=== PATIENT | female | born 1965 | race Hispanic/Latino ===

== ENCOUNTER → 2016-05-08 | Outpatient (CLI) | payer MEDICARE, MEDICAID ==
[~2016-05-08] MED LIST: /ESCI20TA PO; BUSP5TA PO; CELE10TA PO; CETI10TA PO; FLON0.05; LEVO75TA3 PO; PRAZ2CAP PO; REST0.05 OU; SERO400T PO; SERO400T3 PO; VIST50CA PO; [UNRECOGNIZED DRUG - CODE] PO
[2016-05-08 09:58] LABS: BASO # 0.1 K/mm3 (0.0-0.2); BASO % 0.7 % (0.0-1.0); EOS # 0.2 K/mm3 (0.0-0.50); EOS % 1.8 % (0.0-3.0); LARGE UNSTAINED CELL # 0.2 K/mm3 (0.0-0.4); LARGE UNSTAINED CELL % 1.6 % (0.0-4.0); LYMPH # 2.5 K/mm3 (1.5-4.5); LYMPH % 24.8 % (24.0-44.0); MEAN CORPUSCULAR HEMOGLOBIN 30.7 pg (27.0-33.0); MEAN CORPUSCULAR VOLUME 90.2 fl (80.0-96.0); MONO # 0.5 K/mm3 (0.0-0.8); MONO % 4.9 % (0.0-5.0); NEUTROPHILS # 6.4 K/mm3 (1.8-7.7); NEUTROPHILS % 66.2 % (36.0-66.0); PLATELET COUNT, AUTOMATED 335 k/mm3 (150-450); RED CELL DISTRIBUTION WIDTH 12.8 % (11.5-14.5); WHITE BLOOD COUNT 9.6 K/mm3 (4.0-10.0)
[2016-05-08 10:15] LABS: ALBUMIN 3.1 GM/DL (3.2-5.2); ALBUMIN/GLOBULIN RATIO 0.86 (1.00-1.93); ALKALINE PHOSPHATASE 89 U/L (45-117); ALT/SGPT 86 U/L (12-78); ANION GAP 7 MEQ/L (8-16); AST/SGOT 28 U/L (15-37); BILIRUBIN,TOTAL 0.5 MG/DL (0.2-1.0); BLOOD UREA NITROGEN 8 MG/DL (7-18); CALCIUM LEVEL 8.6 MG/DL (8.5-10.1); CARBON DIOXIDE LEVEL 30 MEQ/L (21-32); CHLORIDE LEVEL 103 MEQ/L (98-107); CHOLESTEROL LEVEL 179 MG/DL (<200); FREE T4 0.95 NG/DL (0.76-1.46); GLOMERULAR FILTRATION RATE > 60.0 (>58); GLUCOSE, FASTING 87 MG/DL (70-105); POTASSIUM SERUM 4.8 MEQ/L (3.5-5.1); SODIUM LEVEL 140 MEQ/L (136-145); TOTAL PROTEIN 6.7 GM/DL (6.4-8.2); TRIGLYCERIDES LEVEL 210 MG/DL (<150)
== END ==
LOC: M LAB 08:52
PROVIDERS: ATTEND Emergency Medicine
DX: E03.9 Hypothyroidism, unspecified (principal); E55.9 Vitamin D deficiency, unspecified; J30.9 Allergic rhinitis, unspecified; F32.9 Major depressive disorder, single episode, unspecified

== ENCOUNTER → 2016-07-14 | Outpatient (CLI) | payer MEDICARE, MEDICAID | LOC: M RAD 08:20 | PROVIDERS: ATTEND Obstetrics & Gynecology | DX: Z12.31 Encounter for screening mammogram for malignant neoplasm of breast (principal); Z53.9 Procedure and treatment not carried out, unspecified reason ==

== ENCOUNTER → 2016-08-03 | Outpatient (CLI) | payer MEDICARE, MEDICAID ==
--- NOTE | 2016-08-03 10:15 | REP ---
BILATERAL MAMMOGRAM: FAMILY HISTORY: Breast cancer in mother and two maternal aunts. Moderately dense fibroglandular tissue is noted. Comparison made with multiple prior exams, most recently 08/01/2015. 9 mm rounded nodular opacity is seen laterally on the right CC view. This is not seen on the MLO view. Parenchymal pattern otherwise appears unchanged bilaterally. There are no clustered microcalcifications identified. There are normal sized lymph nodes in the axillary regions. IMPRESSION: ACR 0 incomplete. There appears to be a 9 mm nodular density laterally on the right CC view. Recommend spot compression view of the right breast in CC projection as well as a routine right ML view. Other views and ultrasound may also be necessary. ACR 0 incomplete. BI-RADS/ACR category 0 mammogram. Incomplete: Additional imaging and/or prior images are needed before a final assessment can be assigned. This mammogram was interpreted with the aid of an FDA-approved computer-aided detection system. A. Negative x-ray reports should not delay biopsy if a dominant or clinically suspicious mass is present. B. Four to eight percent of cancers are not identified by x-ray. C. Adenosis and dense breasts may obscure an underlying neoplasm. The patient states she had a clinical breast exam in 08/2015. The patient letter being requested is M0. Signed by Viraj Wynn MD 08/03/2016 05:11 P
== END ==
LOC: M RAD 08:10
PROVIDERS: ATTEND Obstetrics & Gynecology
DX: Z12.31 Encounter for screening mammogram for malignant neoplasm of breast (principal); R92.8 Other abnormal and inconclusive findings on diagnostic imaging of breast; Z80.3 Family history of malignant neoplasm of breast

== ENCOUNTER → 2016-08-11 | Outpatient (CLI) | payer MEDICARE, MEDICAID ==
--- NOTE | 2016-08-11 15:18 | REP ---
DIAGNOSTIC MAMMOGRAM RIGHT BREAST WITH RIGHT BREAST ULTRASOUND: Diagnostic mammogram of the right breast performed with multiple spot compression views obtained in various projections. Correlation is made with a recent mammogram of 08/03/2016 and compared to other prior exams. On spot compression CC views, there persistence of a 9 mm nodular density. This could not be seen on any of the ML or MLO views. On the CC views, the nodular density is partially obscured by overlying dense fibroglandular tissue. Some of the margins appear fairly smooth and well defined. Real-time sonographic evaluation of the outer right breast demonstrates several tiny subcentimeter cystic areas, which appear benign. At 9 -o'clock, there is a hypoechoic nodule which measures 8 x 5 x 8 mm and appears somewhat suspicious. IMPRESSION: ACR IV suspicious. On spot compression CC views of the right breast, there is a suspected persistent 9 mm nodular density but this could not be confirmed on ML or MLO views. By ultrasound at 9 -o'clock, there does appear to be a hypoechoic nodule with a maximum diameter of 8 mm. This may represent a solid nodule. I would recommend ultrasound guided biopsy with postprocedure mammogram after clip placement. B-RADS/ACR category 4 mammogram. Suspicious abnormality - biopsy should be considered. Usually requires biopsy. Patient letter [id number]. Signed by Viraj Wynn MD 08/11/2016 05:06 P
== END ==
LOC: M RAD 11:16
PROVIDERS: ATTEND Obstetrics & Gynecology
DX: R92.8 Other abnormal and inconclusive findings on diagnostic imaging of breast (principal)
CPT/HCPCS: 76642; G0206

== ENCOUNTER → 2016-08-28 | Outpatient (CLI) | payer MEDICARE, MEDICAID ==
[~2016-08-28] MED LIST changes: +LIDOCAINE 1% MDV 20ML VIAL As Ordered ONE
--- NOTE | 2016-08-28 15:10 | REP ---
Digital diagnostic unilateral right breast mammography with CAD: History: Marker clip placement views. Post ultrasound-guided needle biopsy. Right breast nodule on CC views only from August 11, 2016 and solid appearing hypoechoic nodule at 9 o'clock in the right breast on ultrasound exam from August 11, 2016. Comparison is also made with prior mammography from August 01, 2015, August 23, 2014, August 07, 2014 and August 18, 2013. Findings: Post biopsy true MLO, laterally exaggerated CC, and routine CC views were obtained. Marker clip is seen slightly lateral to the position of the nodule on the August 11, 2016 prior study. This nodule is no longer apparent. It was observed to disappear during the suction assisted biopsy on ultrasound. There is a second nodular opacity projecting in the upper outer quadrant of the right breast which is felt to be unchanged from multiple prior mammography images. No hematoma is seen. Impression: The marker clip is felt to be 1-2 cm lateral to the position of the biopsy. The target nodule is no longer apparent. A stable preexisting nodule is seen in the same quadrant. Signed by Jose Post MD 08/28/2016 04:40 P
--- NOTE | 2016-08-28 17:29 | REP ---
ULTRASOUND GUIDED RIGHT BREAST BIOPSY: The procedure was performed by TIEN Cruz under the direct supervision of Dr. Post. The procedure along with its risks, benefits, and complications were discussed with the patient. Informed consent was obtained both verbally and written. Following universal protocol patient and site verification was performed with a "time out" prior to the procedure. The patient was positioned in a left oblique position on the ultrasound gurney. The lesion was localized using real-time sonography. The skin was cleansed and prepped in the usual sterile fashion. 19 mL of 1% Xylocaine was used for local anesthesia. A 13 gauge Mammotome biopsy device was used. A total of 5 biopsy specimens were obtained with post-fire imaging documenting needle placement for each pass. Specimens were placed in formalin and sent to pathology for further analysis. Following the procedure the wound was cleaned and compressed. Post-procedural imaging showed no immediate complications. The patient tolerated the procedure well and left the department in good condition. Reviewed by TIEN Lopez 08/31/2016 10:18 AEdited and Signed by Jose Post MD 08/31/2016 10:47 A
== END ==
LOC: M RADPRO 12:24
PROVIDERS: ATTEND Obstetrics & Gynecology
DX: D24.1 Benign neoplasm of right breast (principal); D05.01 Lobular carcinoma in situ of right breast; I10 Essential (primary) hypertension; F33.9 Major depressive disorder, recurrent, unspecified; E03.9 Hypothyroidism, unspecified; E28.2 Polycystic ovarian syndrome; Z88.8 Allergy status to other drugs, medicaments and biological substances; J30.2 Other seasonal allergic rhinitis; Z79.899 Other long term (current) drug therapy
CPT/HCPCS: 19083; 88305; G0206